=== PATIENT | male | born 1955 | race Caucasian/White ===

== ENCOUNTER → 2016-09-16 | Outpatient (CLI) | payer OTHER ==
[~2016-09-16] MED LIST: REGADENOSON 0.4 MG/5 ML DISP.SYRIN. IV ONE
--- NOTE | 2016-09-16 14:16 | RAD ---
APPROVED REPORT Test Type: Pharmacological Stress Nurse/Tech: KIMBERLEY Zaragoza RN Test Indications: Chest pain, pre op clearance Cardiac History: PR, see EHR Medications: see EHR Medical History: see EHR Resting ECG: SR Resting Heart Rate: 69 bpm Resting Blood Pressure: 153/82mmHg Pretest Chest Pain: No chest pain Nurse/Tech Notes Lungs CTA, heart tones WNL Consent: The procedure was explained to the patient in lay terms. Informed consent was witnessed. River eout was entered into [employer] games. History and Stress Test performed by RT Brayan (Sudha) (N) Pharm. Details Pharmacologic stress testing was performed using 0.4mg per 5ml of regadenoson given intravenously ove r 7-10 seconds. Stress Symptoms No chest pain or symptoms. POST EXERCISE Reason for Termination: Infusion complete Max HR: 86 bpm 64% of Maximum Predicted HR: 134 bpm Max Blood Pressure: 130/62mmHg Chest Pain: No. Arrhythmia: Yes. occasional PVC ST Change: No. INTERPRETATION Stress EKG Conclusion: No acute changes were noted. Imaging Protocol IMAGE PROTOCOL: Rest Tc-99m/stress Tc-99m 1 day Rest: Stress: Viability: Radiopharm.Tc99m [id number] Sestamibi [id number] 33mCi Img Date 09/16/2016 09/16/2016 Inj-Img [id number]. 60min. Rest Admin Site:IV - Left WristAdministrator:RT Brayan (R)(N) Stress Admin Site: IV - Left WristAdministrator: RT Brayan (R)(N) STRESS DATA End Diast. Vol.250.0mlAv. Heart Rate72.0bpm End Syst. Vol.163.0mlCO Index BSA6.3L/min Myocardial Gwgl687.0gEject. Skaiycra48.0% Stress Rates Pk. Fill Rate1.97EDV/secLVtime Pk. Fill 146.16msec Pk. Empty Rate2.08ESV/secLVtime Pk. Zhvxm610.08msec 09/02 Pk. Fill1.00EDV/sec Stress Scores Regional WT1.00Summed WT20.00 Regional WM0.00Summed WM27.00 LV Perfusion There is a large sized, severe in intensity inferior, infero-apical and infero-septal FIXED defect aden ggestive of prior infarct. Based on tracer uptake in the rest images, this defect is partially viable . Wall Motion Severe inferior wall hypokinesis with moderate global hypokinesis. LV Perf. Quant 17 Seg. SSS10.00 17 Seg. SRS16.00 17 Seg. SDS0.00 Stress Defect Extent (% LAD)34.40Rest Defect Extent (% LAD)41.30Rev. Defect Extent (% LAD)6.90 Stress Defect Extent (% LCX) 0.00Rest Defect Extent (% LCX)0.00Rev. Defect Extent (% LCX)0.00 Stress Defect Extent (% RCA)27.80Rest Defect Extent (% RCA)56.70Rev. Defect Extent (% RCA)0.00 Stress Defect Extent (% TANYA)25.20Rest Defect Extent (% TANYA)33.90Rev. Defect Extent (% TANYA)3.30 Other Information Quality:Average Risk Assessment: Moderate-High Risk Conclusion 1. No EKG evidence of stress induced changes. 2. Fixed inferior wall defect suggestive of prior infarct. No new reversible ischemia. 3. Severe LV dysfunction. EF 35% 4. Moderate to high risk study based on decreased EF and prior infarct.
== END | disposition home or self-care (01) ==
LOC: NM 09:04
PROVIDERS: ATTEND Internal Medicine Cardiovascular Disease
DX: R07.9 Chest pain, unspecified (principal)
CPT/HCPCS: 78452; 93017; 96374; 96376; A9500; J2785